=== PATIENT | male | born 1955 | race Caucasian/White ===

== ENCOUNTER → 2017-03-24 | Outpatient (CLI) | payer OTHER | END | disposition home or self-care (01) | LOC: CFH 06:48 | PROVIDERS: ATTEND Physical Medicine & Rehabilitation | DX: M51.37 Other intervertebral disc degeneration, lumbosacral region (principal); M48.07 Spinal stenosis, lumbosacral region; M25.78 Osteophyte, vertebrae; M16.0 Bilateral primary osteoarthritis of hip | CPT/HCPCS: 72110; 73523 ==

== ENCOUNTER → 2017-04-17 | Outpatient (CLI) | payer OTHER | END | disposition home or self-care (01) | LOC: CFH 09:52 | PROVIDERS: ATTEND Physical Medicine & Rehabilitation | DX: M51.37 Other intervertebral disc degeneration, lumbosacral region (principal); M51.27 Other intervertebral disc displacement, lumbosacral region; M48.07 Spinal stenosis, lumbosacral region; M25.78 Osteophyte, vertebrae | CPT/HCPCS: 72148 ==

== ENCOUNTER → 2017-11-20 | Outpatient (CLI) | payer OTHER | END | disposition home or self-care (01) | LOC: CFH 15:05 | PROVIDERS: ATTEND Neurological Surgery | DX: M48.061 Spinal stenosis, lumbar region without neurogenic claudication (principal) | CPT/HCPCS: 72110; 72148 ==

== ENCOUNTER → 2017-12-10 | Outpatient (CLI) | payer OTHER ==
[~2017-12-10] MED LIST: LEVO175T5 PO; LISI40TA PO; SIMV20TA3 PO
[2017-12-10 10:07] LABS: BASOPHILS # (AUTO) 0.02 x10^3/uL (0-0.1); BASOPHILS % (AUTO) 0 % (0-1); EOSINOPHILS # (AUTO) 0.32 x10^3/uL (0-0.4); EOSINOPHILS % (AUTO) 4 % (1-7); LYMPHOCYTES # (AUTO) 2.75 x10^3/uL (1-3.4); LYMPHOCYTES % (AUTO) 34 % (22-44); MD NO; MEAN CORPUSCULAR HEMOGLOBIN 29.9 pg (27.5-34.5); MEAN CORPUSCULAR HGB CONC 33.8 g/dL (33.2-36.2); MEAN CORPUSCULAR VOLUME 88.3 fL (81-97); MEAN PLATELET VOLUME 7.8 fL (7.4-10.4); MONOCYTES # (AUTO) 0.63 x10^3/uL (0.2-0.8); MONOCYTES % (AUTO) 8 % (2-9); NEUTROPHILS # (AUTO) 4.48 x10^3/uL (1.8-6.8); NEUTROPHILS % (AUTO) 55 % (42-75); PLATELET COUNT 280 x10^3/uL (130-400); RED BLOOD COUNT 5.33 x10^6/uL (4.38-5.82)
[2017-12-10 10:13] LABS: MICROSCOPIC NOT IND
[2017-12-10 10:17] LABS: CULTURE INDICATED? NO
[2017-12-10 10:20] LABS: ALBUMIN 4.3 g/dL (3.4-5.0); ANION GAP 9 mmol/L (5-15); CALCIUM 8.9 mg/dL (8.5-10.1); CHLORIDE 105 mmol/L (98-107)
[2017-12-10 10:23] LABS: ALANINE AMINOTRANSFERASE 26 U/L (12-78); ALKALINE PHOSPHATASE 65 U/L (45-117); BILIRUBIN,TOTAL 0.5 mg/dL (0.2-1.0); CREATININE 0.95 mg/dL (0.7-1.3); TOTAL PROTEIN 7.9 g/dL (6.4-8.2)
[2017-12-10 10:32] LABS: INTERNATIONAL NORMALIZED RATIO 0.98 (0.93-1.1); PROTHROMBIN TIME 10.1 Seconds (9.6-11.5)
== END | disposition home or self-care (01) ==
LOC: STAR 09:15
PROVIDERS: ATTEND Neurological Surgery
DX: I10 Essential (primary) hypertension (principal); M51.26 Other intervertebral disc displacement, lumbar region; R79.1 Abnormal coagulation profile
CPT/HCPCS: 36415; 71046; 80053; 81003; 85025; 85610; 85730; 93005

== ENCOUNTER 2017-12-24 05:26 | Day surgery (SDC) | payer OTHER ==
[~2017-12-24] VITALS: Ht 182.9 cm; Wt 111.0 kg
[2017-12-24] MEDS ORDERED: LACTATED RINGERS 1,000 ML IV SCH (06:10)
[2017-12-24 06:32] VITALS: BP 154/94
[2017-12-24] MEDS ORDERED: EPINEPHRINE 1 MG/ML, 1ML ONE (06:44)
[2017-12-24] MEDS ORDERED: THROMBIN 5,000 UNIT VIAL TP ONE (06:44)
[2017-12-24] MEDS ORDERED: BUPIVACAINE/PF 0.5% ONE (06:44)
[2017-12-24] MEDS ORDERED: VANCOMYCIN 1,000 MG ONE (06:44)
[2017-12-24] MEDS ORDERED: BACITRACIN 50,000 UNIT ONE (06:45)
[2017-12-24] MEDS ORDERED: GABAPENTIN 300 MG CAPSULE ONE ×2 (06:58)
[2017-12-24] MEDS ORDERED: ACETAMINOPHEN 500 MG TABLET ONE ×2 (06:58)
[2017-12-24] MEDS ORDERED: OXYcodone IR 5MG TABLET ONE ×2 (06:58)
[2017-12-24] MEDS ORDERED: PROPOFOL 10 MG/ML, 20ML ONE ×2 (07:06)
[2017-12-24] MEDS ORDERED: ONDANSETRON 2MG/ML, 2ML ONE (07:07)
[2017-12-24] MEDS ORDERED: ROCURONIUM 10 MG/ML,10ML ONE (07:07)
[2017-12-24] MEDS ORDERED: CEFAZOLIN 1,000 MG ONE ×2 (07:07)
[2017-12-24] MEDS ORDERED: DEXAMETHASONE 4 MG/ML, 1ML ONE ×2 (07:07)
[2017-12-24] MEDS ORDERED: FENTANYL PF 100 MCG/2ML ONE (07:10)
[2017-12-24] MEDS ORDERED: MIDAZOLAM 1 MG/ML, 2ML ONE (07:10)
[2017-12-24] MEDS ORDERED: PHENYLEPHRINE 10 MG/ML ONE (07:12)
[2017-12-24] MEDS ORDERED: DIPHENHYDRAMINE 50 MG/ML, 1ML ONE (07:12)
[2017-12-24] MEDS ORDERED: NEOSTIGMINE 1 MG/ML, 10ML ONE (07:12)
[2017-12-24] MEDS ORDERED: GLYCOPYRROLATE 0.2MG/1ML, 5ML ONE (07:12)
[2017-12-24] MEDS ORDERED: BUPIVACAINE/PF-EPI 0.5% 1:200K IM ONE (07:38)
[2017-12-24] MEDS ORDERED: METOPROLOL 1 MG/ML, 5ML IV PRN (08:00)
[2017-12-24] MEDS ORDERED: PROMETHAZINE 25 MG/ML, 1ML IV PRN (08:00)
[2017-12-24] MEDS ORDERED: hydrALAzine 20 MG/ML, 1ML IV PRN (08:00)
[2017-12-24] MEDS ORDERED: FENTANYL PF 100 MCG/2ML IV PRN (08:00)
[2017-12-24] MEDS ORDERED: ALBUTEROL SULFATE 2.5 MG/3 ML NPPB PRN (08:00)
[2017-12-24] MEDS ORDERED: ONDANSETRON 2MG/ML, 2ML IVPush PRN (08:00)
[2017-12-24] MEDS ORDERED: LABETALOL 5MG/ML, 20ML IV PRN (08:00)
[2017-12-24] MEDS ORDERED: EPHEDRINE 50 MG/ML, 1ML IVPush PRN (08:00)
[2017-12-24] MEDS ORDERED: DIAZEPAM 5 MG/ML, 2ML IVPush PRN (08:00)
[2017-12-24] MEDS ORDERED: MEPERIDINE/PF 25MG/0.5ML IVPush PRN (08:00)
[2017-12-24] MEDS ORDERED: OXYcodone 5 MG/5 ML ORAL.SOL UDC PO PRN (08:00)
[2017-12-24] MEDS ORDERED: HYDROmorphone 2 MG/ML, 1ML ONE (09:01)
[2017-12-24] MEDS ORDERED: OXYcodone 5 MG/5 ML ORAL.SOL UDC ONE (09:01)
[2017-12-24] MEDS: HYDROmorphone 1 MG/ML, 1ML IV PRN ×4 (09:05→09:42)
[2017-12-24] MEDS ORDERED: OXYcodone/APAP 5/325MG TABLET ONE (13:17)
[2017-12-24] MEDS ORDERED: OXYcodone/APAP 5/325MG TABLET PO PRN (13:30)
== END 2017-12-24 13:25 ==
LOC: OUT 05:26
PROVIDERS: ATTEND Neurological Surgery
DX: M51.16 Intervertebral disc disorders with radiculopathy, lumbar region (principal); I10 Essential (primary) hypertension; E03.9 Hypothyroidism, unspecified; E11.9 Type 2 diabetes mellitus without complications; Z86.19 Personal history of other infectious and parasitic diseases; Z88.1 Allergy status to other antibiotic agents
CPT/HCPCS: 63030; 72100; J0171; J0690; J1100; J1170; J1200; J2250; J2370; J2405; J2704; J2710; J3010; J3360; J3490; J7120; J3370

== ENCOUNTER → 2017-12-29 | Outpatient (CLI) | payer OTHER ==
[~2017-12-29] MED LIST changes: +DOCU-131 PO; +FENTANYL PF 250 MCG/5ML ONE; +METH4TAB6 PO; +MIDAZOLAM 1 MG/ML, 2ML ONE; +OXYC-302 PO; +POLY17PO5 PO; +TIZA4TAB PO
== END | disposition home or self-care (01) ==
LOC: CFH 15:26
PROVIDERS: ATTEND Nurse Practitioner Family
DX: M51.17 Intervertebral disc disorders with radiculopathy, lumbosacral region (principal); G83.4 Cauda equina syndrome; R60.0 Localized edema
CPT/HCPCS: 72110; 72148; J2250; J3010

== ENCOUNTER 2017-12-30 12:26 | Observation (INO) | payer OTHER ==
[~2017-12-30] VITALS: Ht 180.3 cm; Wt 114.1 kg
[~2017-12-30 12:26] MED LIST changes: -DOCU-131 PO; -FENTANYL PF 250 MCG/5ML ONE; -METH4TAB6 PO; -MIDAZOLAM 1 MG/ML, 2ML ONE; -OXYC-302 PO; -POLY17PO5 PO; -TIZA4TAB PO
[2017-12-30] MEDS ORDERED: SODIUM CHLORIDE 0.9% 1,000 ML IV ONE (13:12)
[2017-12-30] MEDS ORDERED: SODIUM CHLORIDE FLUSH 10ML SYR IVF ONE (13:30)
[2017-12-30 13:52] LABS: BASOPHILS # (AUTO) 0.06 x10^3/uL (0-0.1); BASOPHILS % (AUTO) 0 % (0-1); EOSINOPHILS # (AUTO) 0.07 x10^3/uL (0-0.4); EOSINOPHILS % (AUTO) 1 % (1-7); LYMPHOCYTES # (AUTO) 1.97 x10^3/uL (1-3.4); LYMPHOCYTES % (AUTO) 15 % (22-44); MD NO; MEAN CORPUSCULAR HEMOGLOBIN 30.3 pg (27.5-34.5); MEAN CORPUSCULAR HGB CONC 34.1 g/dL (33.2-36.2); MEAN CORPUSCULAR VOLUME 88.8 fL (81-97); MEAN PLATELET VOLUME 7.7 fL (7.4-10.4); MONOCYTES # (AUTO) 0.91 x10^3/uL (0.2-0.8); MONOCYTES % (AUTO) 7 % (2-9); NEUTROPHILS # (AUTO) 10.25 x10^3/uL (1.8-6.8); NEUTROPHILS % (AUTO) 77 % (42-75); PLATELET COUNT 353 x10^3/uL (130-400); RED BLOOD COUNT 5.12 x10^6/uL (4.38-5.82); RED CELL DISTRIBUTION WIDTH 12.9 % (9.4-14.8)
[2017-12-30 14:01] LABS: PROTHROMBIN TIME 10.3 Seconds (9.6-11.5)
[2017-12-30] MEDS ORDERED: POLY17PO5 PO (14:02)
[2017-12-30] MEDS ORDERED: OXYC-302 PO (14:02)
[2017-12-30] MEDS ORDERED: DOCU-131 PO (14:02)
[2017-12-30] MEDS ORDERED: TIZA4TAB PO (14:02)
[2017-12-30] MEDS ORDERED: METH4TAB6 PO (14:06)
[2017-12-30 14:07] VITALS: BP 161/90
[2017-12-30 14:08] LABS: ALANINE AMINOTRANSFERASE 19 U/L (12-78); ANION GAP 9 mmol/L (5-15); CALCIUM 9.3 mg/dL (8.5-10.1); CHLORIDE 102 mmol/L (98-107); CREATININE 1.04 mg/dL (0.7-1.3)
[2017-12-30 14:10] LABS: ALKALINE PHOSPHATASE 63 U/L (45-117); BILIRUBIN,TOTAL 0.5 mg/dL (0.2-1.0); TOTAL PROTEIN 8.1 g/dL (6.4-8.2)
[2017-12-30] MEDS ORDERED: BUPIVACAINE/PF 0.5% ONE (14:27)
[2017-12-30] MEDS ORDERED: BACITRACIN 50,000 UNIT ONE (14:27)
[2017-12-30] MEDS ORDERED: THROMBIN 5,000 UNIT VIAL TP ONE ×2 (14:27→16:59)
[2017-12-30] MEDS ORDERED: CLINDAMYCIN 150 MG/ML, 6ML ONE (15:56)
[2017-12-30] MEDS ORDERED: methylPREDNISolone SOD SUCC 125 MG/2 ML ONE (16:28)
[2017-12-30] MEDS ORDERED: BUPIVACAINE/PF-EPI 0.5% 1:200K IM ONE (16:59)
[2017-12-30] MEDS ORDERED: BACITRACIN 50,000 UNIT IRRIG ONE (16:59)
[2017-12-30] MEDS ORDERED: DEXAMETHASONE 4 MG/ML, 1ML ONE (17:03)
[2017-12-30] MEDS ORDERED: ONDANSETRON 2MG/ML, 2ML ONE (17:04)
[2017-12-30] MEDS ORDERED: SUCCINYLCHOLINE 20 MG/ML, 10ML ONE (17:04)
[2017-12-30] MEDS ORDERED: PROPOFOL 10 MG/ML, 20ML ONE (17:04)
[2017-12-30] MEDS ORDERED: NEOSTIGMINE 1 MG/ML, 10ML ONE (17:04)
[2017-12-30] MEDS ORDERED: ROCURONIUM 10 MG/ML,10ML ONE (17:04)
[2017-12-30] MEDS ORDERED: GLYCOPYRROLATE 0.2MG/1ML, 5ML ONE (17:04)
[2017-12-30] MEDS ORDERED: OXYcodone 5 MG/5 ML ORAL.SOL UDC PO PRN (17:30)
[2017-12-30] MEDS ORDERED: BISACODYL 10 MG SUPP PR PRN (17:30)
[2017-12-30] MEDS ORDERED: EPHEDRINE 50 MG/ML, 1ML IVPush PRN (17:30)
[2017-12-30] MEDS: DEXAMETHASONE 4 MG/ML, 1ML IVPush SCH ×2 (17:30→23:07)
[2017-12-30] MEDS ORDERED: MIDAZOLAM 1 MG/ML, 2ML IV PRN (17:30)
[2017-12-30] MEDS ORDERED: NS + 20MEQ KCL 1,000 ML IV SCH (17:30)
[2017-12-30] MEDS ORDERED: ALBUTEROL SULFATE 2.5 MG/3 ML NPPB PRN (17:30)
[2017-12-30] MEDS ORDERED: PROMETHAZINE 25 MG/ML, 1ML IV PRN (17:30)
[2017-12-30] MEDS ORDERED: ONDANSETRON 2MG/ML, 2ML IVPush PRN ×2 (17:30)
[2017-12-30] MEDS ORDERED: HYDROmorphone 1 MG/ML, 1ML IVPush PRN (17:30)
[2017-12-30] MEDS ORDERED: HYDROcodone/APAP 7.5-325MG/15ML UDC PO PRN (17:30)
[2017-12-30] MEDS ORDERED: DIPHENHYDRAMINE 50 MG/ML, 1ML IVPush PRN (17:30)
[2017-12-30] MEDS ORDERED: PROMETHAZINE 25 MG/ML, 1ML IM PRN (17:30)
[2017-12-30] MEDS ORDERED: POLYETHYLENE GLYCOL 17 GM PACKET PO PRN (17:30)
[2017-12-30] MEDS ORDERED: MAGNESIUM HYDROXIDE 8%, 30ML UDC PO PRN (17:30)
[2017-12-30] MEDS ORDERED: LABETALOL 5MG/ML, 20ML IV PRN (17:30)
[2017-12-30] MEDS ORDERED: METOPROLOL 1 MG/ML, 5ML IV PRN (17:30)
[2017-12-30] MEDS ORDERED: DIAZEPAM 5 MG/ML, 2ML IVPush PRN (17:30)
[2017-12-30] MEDS ORDERED: ACETAMINOPHEN 325 MG TABLET PO PRN (17:30)
[2017-12-30] MEDS ORDERED: PROMETHAZINE 12.5 MG SUPP PR PRN (17:30)
[2017-12-30] MEDS ORDERED: TIZANIDINE 4MG TABLET PO PRN (17:30)
[2017-12-30] MEDS ORDERED: PHARMACY MAY ADJ FOR RENAL FX MC PRN (17:30)
[2017-12-30] MEDS ORDERED: HYDROmorphone 1 MG/ML, 1ML IV PRN (17:30)
[2017-12-30] MEDS ORDERED: ACETAMINOPHEN 650 MG/20.3 ML UDC ONE (17:40)
[2017-12-30] MEDS ORDERED: FENTANYL PF 100 MCG/2ML ONE (17:40)
[2017-12-30] MEDS ORDERED: OXYcodone 5 MG/5 ML ORAL.SOL UDC ONE (17:40)
[2017-12-30] MEDS: FENTANYL PF 100 MCG/2ML IV PRN ×2 (17:45→17:50)
[2017-12-30] MEDS: MEPERIDINE/PF 25MG/0.5ML IVPush PRN ×2 (18:00→18:30)
[2017-12-30] MEDS ORDERED: hydrALAzine 20 MG/ML, 1ML ONE (18:04)
[2017-12-30] MEDS ORDERED: MEPERIDINE/PF 50 MG/ML ONE (18:04)
[2017-12-30] MEDS: hydrALAzine 20 MG/ML, 1ML IV PRN ×2 (18:09→18:50)
[2017-12-30 19:45] VITALS: BP 144/83
[2017-12-30] MEDS ORDERED: VANCOMYCIN 1,500 MG in SODIUM CHLORIDE 0.9% 250 ML IV SCH (20:30)
[2017-12-30] MEDS ORDERED: SIMVASTATIN 20 MG TABLET PO SCH (21:00)
[2017-12-30] MEDS ORDERED: SODIUM CHLORIDE FLUSH 10ML SYR IVF SCH (21:00)
[2017-12-30] MEDS ORDERED: HYDROmorphone 2 MG/ML, 1ML IVPush PRN (21:30)
[2017-12-30 23:30] VITALS: BP 145/78
[2017-12-31] MEDS: OXYcodone/APAP 10/325MG TABLET PO PRN ×2 (01:38→08:05)
[2017-12-31 03:40] VITALS: BP 124/73
[2017-12-31] MEDS: DEXAMETHASONE 4 MG/ML, 1ML IVPush SCH (05:45)
[2017-12-31 07:06] VITALS: BP 140/70
[2017-12-31] MEDS ORDERED: SENNA/DOCUSATE TABLET PO SCH (09:00)
[2017-12-31] MEDS ORDERED: LISINOPRIL 20 MG TABLET PO SCH (09:00)
[2017-12-31] MEDS ORDERED: VANCOMYCIN PER PHARMACY MC SCH (09:00)
[2017-12-31] MEDS ORDERED: LEVOTHYROXINE 175 MCG TABLET PO SCH (09:00)
== END 2017-12-31 10:23 | disposition home or self-care (01) ==
LOC: OR 13:31 → EDIP 13:32 → INTOOBSV 13:32 → OR 13:48 → 4NOR 20:00 → DCLOUNGE 12-31 10:15
PROVIDERS: ADMIT Neurological Surgery; ATTEND Neurological Surgery
DX: M48.061 Spinal stenosis, lumbar region without neurogenic claudication (principal); E03.9 Hypothyroidism, unspecified; I10 Essential (primary) hypertension
CPT/HCPCS: 36415; 63267; 71045; 80053; 85025; 85610; 85730; 96365; 96375; 96376; 99285; G0378; J0330; J0360; J1100; J2175; J2405; J2704; J2710; J2930; J3010; J3370; J3480; J3490; J7050

== ENCOUNTER 2018-09-30 06:39 | Emergency (ER) | payer OTHER ==
[~2018-09-30] VITALS: Ht 182.9 cm; Wt 110.0 kg
[~2018-09-30 06:39] MED LIST changes: +DOCU-131 PO; +METH4TAB6 PO; +OXYC-302 PO; +POLY17PO5 PO; +TIZA4TAB PO
[2018-09-30 06:42] VITALS: BP 170/100
== END 2018-09-30 07:55 | disposition home or self-care (01) ==
LOC: ED 07:45
DX: L02.11 Cutaneous abscess of neck (principal); I10 Essential (primary) hypertension; E03.9 Hypothyroidism, unspecified; Z90.89 Acquired absence of other organs; Z87.891 Personal history of nicotine dependence; Z86.14 Personal history of Methicillin resistant Staphylococcus aureus infection
CPT/HCPCS: 99283

== ENCOUNTER 2019-09-16 07:01 | Outpatient (CLI) | payer MEDICARE ==
[~2019-09-16 07:01] MED LIST changes: -TIZA4TAB PO; +TIZA4TAB2 PO
== END 2019-09-16 23:59 | disposition home or self-care (01) ==
LOC: CFH 07:01
PROVIDERS: ATTEND Family Medicine
DX: E78.5 Hyperlipidemia, unspecified (principal); I10 Essential (primary) hypertension; E03.9 Hypothyroidism, unspecified; F10.20 Alcohol dependence, uncomplicated; Z87.891 Personal history of nicotine dependence; Z88.8 Allergy status to other drugs, medicaments and biological substances; Z82.49 Family history of ischemic heart disease and other diseases of the circulatory system; Z00.00 Encounter for general adult medical examination without abnormal findings
CPT/HCPCS: 76706